=== PATIENT | female | born 1955 | race Caucasian/White ===

== ENCOUNTER 2021-04-05 08:21 | Inpatient (IN) | payer MEDICARE ==
[2021-03-28 12:01] VITALS: BMI 36.6
[2021-04-05] MEDS ORDERED: Sodium Chloride 0.9% 100 ML ONE (08:30)
[2021-04-05] MEDS ORDERED: Tranexamic Acid 1,000 MG/10 ML VIAL ONE (08:30)
[2021-04-05] MEDS ORDERED: Vancomycin 1.5 GRAM/300 ML BAG 1.5 GM in Premix Bag 1 BAG IVPB SCH (08:45)
[2021-04-05] MEDS ORDERED: Midazolam HCl 2 mg/2 ml Vial ONE (10:40)
[2021-04-05] MEDS ORDERED: Fentanyl 100 MCG/2 ML VIAL ONE ×4 (10:40→14:09)
[2021-04-05] MEDS ORDERED: Acetaminophen 500 MG TAB PO PRN (11:08)
[2021-04-05] MEDS ORDERED: diphenhydrAMINE 50 MG/ML VIAL IVP PRN (11:15)
[2021-04-05] MEDS ORDERED: diphenhydrAMINE 50 MG/ML VIAL IM PRN (11:15)
[2021-04-05] MEDS ORDERED: Naloxone HCl 0.4 mg/ml Vial IV PRN (11:15)
[2021-04-05] MEDS ORDERED: Naloxone HCl 0.4 mg/ml Vial IVP PRN (11:15)
[2021-04-05] MEDS ORDERED: HYDROcodone/Acetaminophen 5/325 mg Tablet PO PRN (11:15)
[2021-04-05] MEDS ORDERED: traMADol HCl 50 MG TAB PO PRN ×2 (11:15)
[2021-04-05] MEDS ORDERED: Promethazine HCl 25 MG SUPP PR PRN (11:15)
[2021-04-05] MEDS ORDERED: Zolpidem Tartrate 5 MG TAB PO PRN ×2 (11:15→11:33)
[2021-04-05] MEDS ORDERED: Promethazine HCl 25 MG/ML VIAL IM PRN ×3 (11:15→13:51)
[2021-04-05] MEDS ORDERED: diphenhydrAMINE 25 MG CAP PO PRN (11:15)
[2021-04-05] MEDS ORDERED: Bupivacaine 0.25% 10 ML VIAL EPIDURAL PRN (11:15)
[2021-04-05] MEDS ORDERED: Hydrocerin (Eucerin) Cream 120 gm Jar TOP PRN (11:15)
[2021-04-05] MEDS ORDERED: Ondansetron PF 4 MG/2 ML Vial IVP PRN (11:15)
[2021-04-05] MEDS ORDERED: Acetaminophen 325 MG TAB PO PRN (11:33)
[2021-04-05] MEDS ORDERED: HYDROcodone/Acetaminophen 10/325 mg Tablet PO PRN ×2 (11:33)
[2021-04-05] MEDS ORDERED: Ropivacaine 0.2% HCl/PF 20 ML ONE (11:48)
[2021-04-05] MEDS ORDERED: Ketorolac Tromethamine 30 MG/ML VIAL IVP SCH (12:00)
[2021-04-05] MEDS ORDERED: Ondansetron PF 4 MG/2 ML Vial ONE (12:01)
[2021-04-05] MEDS ORDERED: Dexamethasone 20 MG/5 ML VIAL ONE (12:01)
[2021-04-05] MEDS ORDERED: Lidocaine 1.5% w/Epi 1:200K 30 ML VIAL (Epid Use) ONE (12:01)
[2021-04-05] MEDS ORDERED: Glycopyrrolate 0.2 MG/ML 5 ML SYRINGE ONE (12:01)
[2021-04-05] MEDS ORDERED: Lidocaine 1% PF 5 ML VIAL ONE (12:01)
[2021-04-05] MEDS ORDERED: Rocuronium Bromide 10 MG/ML (10ML VIAL) ONE (12:01)
[2021-04-05] MEDS ORDERED: PROPOFOL 200 MG/20 ML VIAL ONE (12:01)
[2021-04-05] MEDS ORDERED: Promethazine HCl 25 MG/ML VIAL IVPB PRN (13:51)
[2021-04-05] MEDS ORDERED: Ondansetron HCl/PF 4 MG/2 ML Vial IVP PRN (13:51)
[2021-04-05] MEDS ORDERED: Meperidine HCl/PF 25 MG/ML VIAL ONE (14:40)
[2021-04-05] MEDS: CEFAZOLIN 2 GM in Premix Bag 1 BAG IVPB SCH (15:31)
[2021-04-05] MEDS: Sodium Chloride 0.9% 1,000 ML IV SCH ×2 (15:31→20:26)
[2021-04-05] MEDS: Ketorolac Tromethamine 30 MG/ML VIAL IVP SCH ×2 (16:07→22:14)
[2021-04-05] MEDS: Aspirin 81 mg Enteric Coated Tablet PO SCH (20:17)
[2021-04-05] MEDS: HYDROcodone/Acetaminophen 5/325 mg Tablet PO PRN (22:14)
[2021-04-05] MEDS: Ondansetron PF 4 MG/2 ML Vial IVP PRN (22:14)
[2021-04-06] MEDS: CEFAZOLIN 2 GM in Premix Bag 1 BAG IVPB SCH
[2021-04-06] MEDS: Ketorolac Tromethamine 30 MG/ML VIAL IVP SCH ×4 (03:28→23:59)
[2021-04-06] MEDS: Fentanyl 5 mcg/Bup 0.075% Cadd 100 ML EPIDURAL SCH ×2 (04:02→19:37)
[2021-04-06] MEDS: Ondansetron PF 4 MG/2 ML Vial IVP PRN ×3 (04:11→23:59)
[2021-04-06] MEDS: HYDROcodone/Acetaminophen 5/325 mg Tablet PO PRN ×2 (04:11→09:51)
[2021-04-06 06:21] LABS: Mean Corpuscular HGB CONC 33.4 g/dL (32.0-36.0); Mean Corpuscular Hemoglobin 31.7 pg (27.0-31.0); Mean Corpuscular Volume 94.8 fL (78.0-98.0); Mean Platelet Volume 6.8 fL (7.4-10.4); Platelet Count 290 thou/uL (130-400); Red Blood Cell (RBC) Count 3.46 mill/uL (4.20-5.40); White Blood Cell (WBC) Count 12.6 thou/uL (4.8-10.8)
[2021-04-06] MEDS ORDERED: Non-Formulary Item 1 EACH (Multivitamin [Multiple Vitamins] 1 EACH Tablet) PO SCH (09:00)
[2021-04-06] MEDS: diphenhydrAMINE 25 MG CAP PO PRN ×2 (09:50→23:59)
[2021-04-06] MEDS: Magnesium Oxide 250 MG TAB PO SCH (09:52)
[2021-04-06] MEDS: Senokot S 8.6-50 MG TAB PO SCH ×2 (09:52→20:52)
[2021-04-06] MEDS: Aspirin 81 mg Enteric Coated Tablet PO SCH ×2 (09:53→20:51)
[2021-04-06] MEDS: Ascorbic Acid 500 mg Chewable Tablet PO SCH (09:53)
[2021-04-06] MEDS: Fish Oil 1,000 MG CAP PO SCH (09:53)
[2021-04-06] MEDS: Cholecalciferol 1,000 UNITS (25 MCG) TAB PO SCH (09:53)
[2021-04-06] MEDS: Multivitamin W/ Minerals 1 TAB PO SCH (09:53)
[2021-04-06] MEDS: Loratadine 10 MG TAB PO SCH (09:54)
[2021-04-06] MEDS: Potassium Chloride 10 MEQ TAB PO SCH (09:54)
[2021-04-06] MEDS: Ferrous Gluconate 324 MG TAB PO SCH ×2 (09:54→20:51)
[2021-04-06] MEDS: Sodium Chloride 0.9% 1,000 ML IV SCH ×2 (16:45→20:07)
[2021-04-07] MEDS: Sodium Chloride 0.9% 1,000 ML IV SCH (03:50)
[2021-04-07] MEDS: Ketorolac Tromethamine 30 MG/ML VIAL IVP SCH ×3 (05:34→12:35)
[2021-04-07] MEDS: Multivitamin W/ Minerals 1 TAB PO SCH (08:51)
[2021-04-07] MEDS: Aspirin 81 mg Enteric Coated Tablet PO SCH (08:51)
[2021-04-07] MEDS: Fish Oil 1,000 MG CAP PO SCH (08:51)
[2021-04-07] MEDS: Ferrous Gluconate 324 MG TAB PO SCH (08:52)
[2021-04-07] MEDS: Ascorbic Acid 500 mg Chewable Tablet PO SCH (08:52)
[2021-04-07] MEDS: Loratadine 10 MG TAB PO SCH (08:52)
[2021-04-07] MEDS: Magnesium Oxide 250 MG TAB PO SCH (08:52)
[2021-04-07] MEDS: Potassium Chloride 10 MEQ TAB PO SCH (08:53)
[2021-04-07] MEDS: Cholecalciferol 1,000 UNITS (25 MCG) TAB PO SCH (08:54)
[2021-04-07] MEDS: Senokot S 8.6-50 MG TAB PO SCH (08:54)
[2021-04-07] MEDS: HYDROcodone/Acetaminophen 5/325 mg Tablet PO PRN ×3 (08:58→13:27)
[2021-04-07] MEDS: Ondansetron PF 4 MG/2 ML Vial IVP PRN (09:05)
[2021-04-07] MEDS ORDERED: Ondansetron ODT 4 MG TAB PO PRN (09:05)
[2021-04-07 11:58] VITALS: BP 128/67; TEMP 98.2
== END 2021-04-07 14:12 | disposition home or self-care (01) | DRG 470 ==
LOC: SDC 08:21 → SURG A 11:33
PROVIDERS: ADMIT Orthopaedic Surgery; ATTEND Orthopaedic Surgery
PROC: 0SR9039 Replacement of Right Hip Joint with Ceramic Synthetic Substitute, Cemented, Open Approach (ICD-10-PCS; principal; 2021-04-05)
DX: M16.11 Unilateral primary osteoarthritis, right hip (principal); Z88.8 Allergy status to other drugs, medicaments and biological substances; Z91.018 Allergy to other foods; Z91.09 Other allergy status, other than to drugs and biological substances; Z79.82 Long term (current) use of aspirin; Z79.899 Other long term (current) drug therapy
CPT/HCPCS: 36415; 85027; J0690; J1100; J1200; J1885; J2001; J2175; J2250; J2405; J2704; J2795; J3010; J3370; J3490; Q0162

== ENCOUNTER 2021-06-09 15:04 | Outpatient (CLI) | payer OTHER, MEDICARE ==
[2021-03-24 15:45] LABS: #Basophils 0.1 10x3/uL (0.0-0.2); #Eosinphils 0.3 10x3/uL (0.0-0.5); #Monocytes 0.8 10x3/uL (0.0-1.1); #Neutrophils 7.1 10x3/uL (1.5-8.4); %Basophils 0.8 % (0.0-2.0); %Eosinophils 2.8 % (0.0-6.0); %Lymphocytes 18.6 % (18.0-47.0); %Monocytes 7.9 % (0.0-10.0); %Neutrophils 69.5 % (40.0-75.0); Hemoglobin 13.5 g/dL (12.0-15.5); Mean Corpuscular HGB CONC 32.7 g/dL (32.0-36.0); Mean Corpuscular Hemoglobin 30.1 pg (27.0-33.0); Mean Platelet Volume 9.5 fl (7.4-10.4); Platelet Count 365 10x3/uL (150-450); Red Blood Cell (RBC) Count 4.49 10x6/uL (3.90-5.03); White Blood Cell (WBC) Count 10.3 10x3/uL (3.5-10.5)
[2021-03-24 15:50] LABS: Bilirubin Neg (Negative); Blood, Urine Negative (Negative); Clarity Clear (Clear); Glucose, Urine (Dipstick) Normal (Negative); Ketone, Urine 15 mg/dL (Negative); Leukocyte Negative (Negative); Nitrite Negative (Negative); Protein, Urine (Dipstick) Negative (Neg-Trace); Specific Gravity, Urine 1.025 (1.002-1.036); Urobilinogen Normal mg/dL (Less than 2)
[2021-03-24 15:56] LABS: Prothrombin Time 10.9 sec (9.5-12.1)
[2021-03-24 15:58] LABS: Bacteria/HPF 2+ HPF (None Seen); RBC/HPF None Seen HPF (0-3); WBC/HPF 0-3 HPF (0-3)
[2021-03-24 15:59] LABS: Anion Gap 15 mmol/L (10-20); BUN (Urea Nitrogen) 17 mg/dL (9.8-20.1); Calc. Creatinine Clearance 0 mL/min (70-130); Carbon Dioxide 26 mmol/L (23-31); Chloride 104 mmol/L (98-107); Glucose 89 mg/dL (80-115); Potassium 4.5 mmol/L (3.5-5.1); Sodium 140 mmol/L (136-145)
[2021-03-25 12:30] LABS: SARS-CoV-2 PCR by NAA Not Detected (NotDetected)
[2021-06-09 16:51] LABS: #Basophils 0.1 10x3/uL (0.0-0.2); #Eosinphils 0.4 10x3/uL (0.0-0.5); #Monocytes 0.7 10x3/uL (0.0-1.1); #Neutrophils 6.3 10x3/uL (1.5-8.4); %Basophils 0.9 % (0.0-2.0); %Eosinophils 4.1 % (0.0-6.0); %Lymphocytes 20.8 % (18.0-47.0); %Monocytes 7.2 % (0.0-10.0); %Neutrophils 66.8 % (40.0-75.0); Hemoglobin 12.9 g/dL (12.0-15.5); Mean Corpuscular HGB CONC 32.7 g/dL (32.0-36.0); Mean Corpuscular Hemoglobin 29.6 pg (27.0-33.0); Mean Corpuscular Volume 90.6 fl (81.6-98.3); Mean Platelet Volume 10.2 fl (7.4-10.4); Platelet Count 342 10x3/uL (150-450); RBC Distribution Width 12.3 % (11.5-14.5); Red Blood Cell (RBC) Count 4.36 10x6/uL (3.90-5.03); White Blood Cell (WBC) Count 9.3 10x3/uL (3.5-10.5)
[2021-06-09 17:04] LABS: PTT 26.9 sec (22.0-33.0); Prothrombin Time 10.8 sec (9.5-12.1)
[2021-06-09 17:09] LABS: Anion Gap 14 mmol/L (10-20); BUN (Urea Nitrogen) 12 mg/dL (9.8-20.1); Calc. Creatinine Clearance 0 mL/min (70-130); Calcium 10.1 mg/dL (7.8-10.44); Carbon Dioxide 25 mmol/L (23-31); Chloride 104 mmol/L (98-107); Glucose 118 mg/dL (80-115); Potassium 4.4 mmol/L (3.5-5.1); Sodium 139 mmol/L (136-145)
[2021-06-10 08:32] LABS: SARS-CoV-2 PCR by NAA Not Detected (NotDetected)
== END 2021-06-09 15:05 | disposition home or self-care (01) ==
LOC: LABBT 15:04
PROVIDERS: ATTEND Orthopaedic Surgery
DX: Z01.812 Encounter for preprocedural laboratory examination (principal); M16.11 Unilateral primary osteoarthritis, right hip; Z20.822 Contact with and (suspected) exposure to COVID-19
CPT/HCPCS: 80048; 81001; 85025; 85610; 85730; 87081; U0003; U0005

== ENCOUNTER 2021-06-14 06:15 | Day surgery (SDC) | payer MEDICARE ==
[2021-06-13 11:05] VITALS: BMI 36.6
[2021-06-14] MEDS ORDERED: Midazolam HCl 2 mg/2 ml Vial ONE (07:38)
[2021-06-14] MEDS ORDERED: Fentanyl 100 MCG/2 ML VIAL ONE ×3 (07:38→11:49)
[2021-06-14] MEDS ORDERED: Sodium Chloride 0.9% 100 ML ONE (08:07)
[2021-06-14] MEDS ORDERED: Tranexamic Acid 1,000 MG/10 ML VIAL ONE (08:07)
[2021-06-14] MEDS ORDERED: Dexamethasone 4 mg/ml Vial ONE (08:14)
[2021-06-14] MEDS ORDERED: Vancomycin 1.5 GRAM/300 ML BAG 1.5 GM in Premix Bag 1 BAG IVPB SCH (08:30)
[2021-06-14] MEDS ORDERED: Bupivacaine PF 0.5% 30 ML VIAL ONE (10:09)
[2021-06-14] MEDS ORDERED: PROPOFOL 20 ML ONE (10:35)
[2021-06-14] MEDS ORDERED: PHENYLEPHRINE-NS 100 MCG/ML 10 ML SYRINGE ONE (12:58)
[2021-06-14] MEDS ORDERED: ePHEDrine 50 MG/ML VIAL ONE (12:58)
[2021-06-14] MEDS ORDERED: Dexamethasone 20 MG/5 ML VIAL ONE (13:00)
[2021-06-14] MEDS ORDERED: Bupivacaine HCl 0.5%/Epinephrine 1:200,000/PF 30 ml Vial ONE (13:00)
[2021-06-14] MEDS ORDERED: HYDROcodone/Acetaminophen 5/325 mg Tablet ONE (15:18)
[2021-06-14 21:06] VITALS: BP 155/87
== END 2021-06-14 16:00 | disposition home or self-care (01) ==
LOC: SDC 06:15
PROVIDERS: ATTEND Orthopaedic Surgery
PROC: 0SRB04A Replacement of Left Hip Joint with Ceramic on Polyethylene Synthetic Substitute, Uncemented, Open Approach (ICD-10-PCS; principal; 2021-06-14)
PROC: 3E0T3BZ Introduction of Anesthetic Agent into Peripheral Nerves and Plexi, Percutaneous Approach (ICD-10-PCS; 2021-06-14)
DX: M16.12 Unilateral primary osteoarthritis, left hip (principal); I49.3 Ventricular premature depolarization; J45.909 Unspecified asthma, uncomplicated; G89.29 Other chronic pain; M19.90 Unspecified osteoarthritis, unspecified site; Z79.899 Other long term (current) drug therapy; Z91.018 Allergy to other foods; Z96.641 Presence of right artificial hip joint
CPT/HCPCS: J1100; J2250; J2704; J3010; J3370; J3490; S0020